=== PATIENT | female | born 1970 | race African-American/Black ===

== ENCOUNTER 2021-09-15 13:17 | Emergency (ER) | payer BC ==
[~2021-09-15] VITALS: Ht 172.7 cm; Wt 108.9 kg
--- NOTE | 2021-09-15 13:17 | NUR ---
PT PLACED IN BED 4. REPORT TO GUILLE GOMEZ
[2021-09-15 13:36] VITALS: BP_SYST 135
[2021-09-15] MEDS ORDERED: NACL 0.9% 1,000 ML IV ONE (13:45)
--- NOTE | 2021-09-15 14:09 | NUR ---
In ER bed 4. Vertigo at [place]. IV placed NS running.
[2021-09-15 15:05] LABS: BILIRUBIN,URINE NEGATIVE (NEGATIVE); BLOOD, URINE NEGATIVE (NEGATIVE); CLARITY/URINE CLEAR (CLEAR); COLOR,URINE YELLOW (YELLOW); GLUCOSE,URINE NEGATIVE (NEGATIVE); KETONES,URINE NEGATIVE (NEGATIVE); LEUKOCYTE ESTERASE ,URINE TRACE (NEGATIVE); NITRITE, URINE NEGATIVE (NEGATIVE); PROTEIN URINE NEGATIVE (NEGATIVE); UROBILINOGEN,URINE 0.2 (0.2-1.0)
[2021-09-15 15:09] LABS: HCG,QUAL RESULT NEGATIVE (NEGATIVE)
--- NOTE | 2021-09-15 15:17 | NUR ---
Stable. Has become more alert. IV fluid running. Labs being drawn.
[2021-09-15 15:25] LABS: BACTERIA,URINE FEW /HPF (None Seen); MUCUS,URINE None Seen /LPF (None Seen); RBC,URINE NONE SEEN /HPF (0-3)
[2021-09-15] MEDS ORDERED: KETOROLAC TROMETHAMINE 15 MG VIAL IVP ONE (15:45)
[2021-09-15 15:53] LABS: BASOPHILS % (AUTO) 0.5 % (0.0-2.0); EOSINOPHILS % (AUTO) 0.5 % (0.0-4.0); HEMATOCRIT 39.4 % (36-48); LYMPHOCYTES # (AUTO) 1.7 K/uL (1.0-5.5); LYMPHOCYTES % (AUTO) 23.2 % (20.5-51.5); MEAN CORPUSCULAR HEMOGLOBIN 30 pg (27-31); MEAN CORPUSCULAR HGB CONC 33 % (32-36); MEAN CORPUSCULAR VOLUME 91 fL (79.0-98.0); MONOCYTES # (AUTO) 0.4 K/uL (0.0-1.0); MONOCYTES % (AUTO) 5.1 % (1.7-9.3); NEUTROPHILS # (AUTO) 5.3 K/uL (1.8-7.7); NEUTROPHILS % (AUTO) 70.7 % (40.0-70.0); PLATELET COUNT (AUTO) 241 K/uL (130-430); RED BLOOD CELL COUNT(AUTO) 4.33 MIL/uL (4.2-6.2); RED CELL DISTRIBUTION WIDTH 14.2 % (9.0-15.0); WHITE BLOOD COUNT (AUTO) 7.5 K/uL (4.8-10.8)
[2021-09-15 15:56] LABS: ANION GAP 11 (5-15); CALCIUM 8.8 mg/dL (8.4-11.0); CHLORIDE 107 mmol/L (98-107); CREATININE 0.81 mg/dL (0.55-1.30); GLUCOSE 97 mg/dL (70-99); POTASSIUM 3.1 mmol/L (3.5-5.1); SODIUM SERUM 143 mmol/L (136-145); UREA NITROGEN, BLOOD 7 mg/dL (8-21)
[2021-09-15 15:57] LABS: GFR AFRICAN AMERICAN 96 mL/min (>90)
[2021-09-15 16:04] LABS: ALANINE AMINOTRANSFERASE 14 U/L (12-78); ALBUMIN 3.2 g/dL (3.4-4.8); ASPARTATE AMINOTRANSFERASE 21 U/L (10-37); TOTAL BILIRUBIN 0.4 mg/dL (0.0-1.0)
[2021-09-15] MEDS ORDERED: POTASSIUM CHLORIDE 20 MEQ TAB.PRT.SR PO ONE (16:45)
[2021-09-15 17:42] VITALS: BP_SYST 126
--- NOTE | 2021-09-15 17:44 | NUR ---
Patient given written and verbal discharge instructions and verbalizes understanding. ER MD discussed with patient the results and treatment provided. Patient in stable condition. ID arm band removed. IV catheter removed intact and dressing applied, no active bleeding. Rx given. Patient educated on pain management and to follow up with PMD. Pain Scale 0. Opportunity for questions provided and answered. Medication side effect fact sheet provided.
== END 2021-09-15 17:44 | disposition home or self-care (01) ==
LOC: SED 13:17
DX: R55 Syncope and collapse (principal); E86.0 Dehydration; E87.6 Hypokalemia; I10 Essential (primary) hypertension
CPT/HCPCS: 36415; 70450; 71045; 76376; 80053; 81000; 82550; 82962; 83605; 84484; 84703; 85025; 93005; 96361; 96374; 99285; J1885; J7030